=== PATIENT | female | born 1965 | race African-American/Black ===

== ENCOUNTER 2017-02-23 14:44 | Outpatient (CLI) | payer SELFPAY ==
--- NOTE | 2017-02-23 16:41 | RAD ---
LEFT KNEE TWO VIEWS: HISTORY: Left knee pain and swelling. FINDINGS/IMPRESSION: Mild degenerative changes are seen. No fracture or dislocation or bony destruction is identified. POS: [facility]
== END 2017-02-23 14:45 | disposition home or self-care (01) ==
LOC: NAV RAD 14:44
PROVIDERS: ATTEND Family Medicine
DX: Z02.71 Encounter for disability determination (principal)